=== PATIENT | male | born 1950 | race Hispanic/Latino ===

== ENCOUNTER 2021-10-14 13:07 | Emergency (ER) | payer MEDICARE ==
[~2021-10-14] VITALS: Ht 167.6 cm; Wt 90.7 kg
[2021-10-14] MEDS ORDERED: LEVSIN-SL0.125 MG SL (14:06)
[2021-10-14] MEDS ORDERED: ALBUTEROL/IPRATROPIUM 3 ML NEB NEB ONE ×2 (14:30)
== END 2021-10-14 14:30 | disposition home or self-care (01) ==
LOC: FSED 13:13
DX: R10.9 Unspecified abdominal pain (principal); R14.0 Abdominal distension (gaseous); I10 Essential (primary) hypertension
CPT/HCPCS: 74176; 80048; 80076; 85025; 99283